=== PATIENT | male | born 1965 | race Caucasian/White ===

== ENCOUNTER 2018-03-27 01:56 | Inpatient (IN) ==
[2018-03-27] MEDS ORDERED: ONDANSETRON 4 MG/2 ML VIAL IV PRN (05:01)
[2018-03-27] MEDS ORDERED: INFLUENZA VIRUS VACCINE 0.5 ML SYRINGE IM ONE (06:40)
[2018-03-27 08:55] LABS: Basophils % 0.6 % (0.0-0.8); Eosinophils # 0.1 10*3/uL (0.0-0.87); Eosinophils % 0.7 % (0.00-10.9); Hematocrit 40.6 VOL% (42.0-52.0); Hemoglobin 12.9 GM/DL (14.0-18.0); Immature Granulocytes % 0.4 %; Immature Granulocytes Absolute 0.03 #; Lymphocytes # 1.3 10*3/uL (1.4-4.0); Lymphocytes % 18.6 % (21.2-54.2); Mean Corpuscular HGB Conc 31.8 GM/DL (32-36); Mean Corpuscular Hemoglobin 26 PG (27-34); Mean Corpuscular Volume 81.9 FL (87-102); Mean Platelet Volume 9.7 FL (9.6-12.0); Monocytes # 0.7 10*3/uL (0.11-0.8); Monocytes % 10.1 % (1.7-12.7); Neutrophils # 4.9 10*3/uL (1.4-7.4); Neutrophils % 69.6 % (38.7-73.9); Platelet Count 355 T/CUMM (130-400); Red Blood Count 4.96 MC/CUMM (3.8-5.5); Red Cell Distribution Width 15.6 % (9.3-17.3); White Blood Count 7.1 T/CUMM (4-12)
[2018-03-27 09:17] LABS: Albumin 2.9 G/DL (3.4-5.0); Bilirubin,Total 5.4 MG/DL (0.2-1.0); Calcium 8.6 MG/DL (8.5-10.1); Osmolality,Calculated 272.7 MOS/KG (273-304)
[2018-03-27] MEDS: PANTOPRAZOLE 40 MG VIAL IV SCH (09:43)
[2018-03-27] MEDS: DEXTROSE 5% LACTATED RINGERS 1,000 ML IV SCH ×3 (09:57→23:44)
[2018-03-27] MEDS ORDERED: SUCCINYLCHOLINE 200 MG/10 ML VIAL ONE (10:00)
[2018-03-27] MEDS ORDERED: LIDOCAINE 2% 5 ML VIAL ONE (10:00)
[2018-03-27] MEDS ORDERED: MIDAZOLAM 2 MG/2 ML VIAL ONE ×2 (10:00→12:01)
[2018-03-27] MEDS ORDERED: PROPOFOL 200 MG/20 ML VIAL IV ONE (10:00)
[2018-03-27] MEDS ORDERED: fentaNYL 100 MCG/2 ML VIAL ONE ×2 (10:00→12:01)
[2018-03-27] MEDS ORDERED: ONDANSETRON 4 MG/2 ML VIAL ONE (10:00)
[2018-03-27 10:43] LABS: PT Patient Result 10.9 SECS; Partial Thromboplastin Time 29.7 SECS (0-40)
[2018-03-27] MEDS ORDERED: LACTATED RINGERS 500 ML IV ONE (11:03)
[2018-03-27] MEDS ORDERED: INDOMETHACIN SUPP 50 MG SUPP RECTAL ONE (11:04)
[2018-03-27] MEDS ORDERED: SEVOFLURANE 1 UNIT/15 MINUTE INH ONE (13:15)
[2018-03-28 04:56] LABS: Basophils % 0.9 % (0.0-0.8); Eosinophils # 0.1 10*3/uL (0.0-0.87); Eosinophils % 2.9 % (0.00-10.9); Hematocrit 33.1 VOL% (42.0-52.0); Hemoglobin 10.5 GM/DL (14.0-18.0); Immature Granulocytes % 0.2 %; Immature Granulocytes Absolute 0.01 #; Lymphocytes # 1.4 10*3/uL (1.4-4.0); Lymphocytes % 31.2 % (21.2-54.2); Mean Corpuscular HGB Conc 31.7 GM/DL (32-36); Mean Corpuscular Hemoglobin 26 PG (27-34); Mean Corpuscular Volume 81.9 FL (87-102); Mean Platelet Volume 10.7 FL (9.6-12.0); Monocytes # 0.5 10*3/uL (0.11-0.8); Monocytes % 10.9 % (1.7-12.7); Neutrophils # 2.4 10*3/uL (1.4-7.4); Neutrophils % 53.9 % (38.7-73.9); Platelet Count 271 T/CUMM (130-400); Red Blood Count 4.04 MC/CUMM (3.8-5.5); Red Cell Distribution Width 15.8 % (9.3-17.3); White Blood Count 4.4 T/CUMM (4-12)
[2018-03-28 05:15] LABS: Albumin 2.3 G/DL (3.4-5.0); Bilirubin,Total 5.4 MG/DL (0.2-1.0); Osmolality,Calculated 281.1 MOS/KG (273-304); Total Protein 5.6 G/DL (6.4-8.3)
[2018-03-28] MEDS: DEXTROSE 5% LACTATED RINGERS 1,000 ML IV SCH ×3 (07:21→22:28)
[2018-03-28] MEDS: PANTOPRAZOLE 40 MG VIAL IV SCH (09:43)
[2018-03-29 05:39] LABS: Eosinophils # 0.1 10*3/uL (0.0-0.87); Eosinophils % 2.4 % (0.00-10.9); Hematocrit 33.1 VOL% (42.0-52.0); Hemoglobin 10.8 GM/DL (14.0-18.0); Immature Granulocytes % 0.2 %; Immature Granulocytes Absolute 0.01 #; Lymphocytes % 25.1 % (21.2-54.2); Mean Corpuscular HGB Conc 32.6 GM/DL (32-36); Mean Corpuscular Hemoglobin 26 PG (27-34); Mean Corpuscular Volume 80.5 FL (87-102); Mean Platelet Volume 10.7 FL (9.6-12.0); Monocytes # 0.4 10*3/uL (0.11-0.8); Monocytes % 8.8 % (1.7-12.7); Neutrophils # 2.6 10*3/uL (1.4-7.4); Neutrophils % 62.5 % (38.7-73.9); Platelet Count 281 T/CUMM (130-400); Red Blood Count 4.11 MC/CUMM (3.8-5.5); Red Cell Distribution Width 15.9 % (9.3-17.3); White Blood Count 4.1 T/CUMM (4-12)
[2018-03-29 06:06] LABS: Albumin 2.5 G/DL (3.4-5.0); Bilirubin,Total 6.9 MG/DL (0.2-1.0); Calcium 8.3 MG/DL (8.5-10.1); Osmolality,Calculated 275.4 MOS/KG (273-304); Potassium 3.6 MMOL/L (3.5-5.1)
[2018-03-29] MEDS ORDERED: MORPHINE 4 MG/1 ML VIAL IV ONE (07:43)
[2018-03-29] MEDS ORDERED: MORPHINE 4 MG/1 ML VIAL ONE (07:43)
[2018-03-29 07:59] LABS: Basophils # 0.1 10*3/uL (0.0-0.2); Eosinophils # 0.1 10*3/uL (0.0-0.87); Hematocrit 36.7 VOL% (42.0-52.0); Hemoglobin 11.8 GM/DL (14.0-18.0); Immature Granulocytes % 0.2 %; Immature Granulocytes Absolute 0.01 #; Lymphocytes # 1.6 10*3/uL (1.4-4.0); Lymphocytes % 31.5 % (21.2-54.2); Mean Corpuscular HGB Conc 32.2 GM/DL (32-36); Mean Corpuscular Hemoglobin 26 PG (27-34); Mean Corpuscular Volume 81.7 FL (87-102); Mean Platelet Volume 10.3 FL (9.6-12.0); Monocytes # 0.4 10*3/uL (0.11-0.8); Monocytes % 8.1 % (1.7-12.7); Neutrophils # 2.8 10*3/uL (1.4-7.4); Neutrophils % 57.2 % (38.7-73.9); Platelet Count 314 T/CUMM (130-400); Red Blood Count 4.49 MC/CUMM (3.8-5.5)
[2018-03-29 08:24] LABS: Alanine Aminotransferase 142 U/L (16-61); Albumin 2.7 G/DL (3.4-5.0); Alkaline Phosphatase 422 U/L (45-117); Aspartate Amino Transferase 92 U/L (0-37); Blood Urea Nitrogen 5 MG/DL (7-18); Calcium 8.7 MG/DL (8.5-10.1); Glucose 97 MG/DL (74-106); Osmolality,Calculated 277.3 MOS/KG (273-304); Potassium 4.6 MMOL/L (3.5-5.1); Sodium 141 MMOL/L (136-145); Total Protein 6.4 G/DL (6.4-8.3); Troponin I < 0.015 NG/ML (0.00-0.045)
[2018-03-29] MEDS ORDERED: LORazepam 2 MG/1 ML VIAL IV PRN (09:10)
[2018-03-29] MEDS ORDERED: THIAMINE INJ 100 MG, FOLIC ACID INJ 1 MG, MAGNESIUM SULF INJ 2 GM, MULTIVITAMIN INJ 10 ... IV ONE (09:12)
[2018-03-29] MEDS: PANTOPRAZOLE 40 MG VIAL IV SCH (09:40)
[2018-03-29] MEDS: QUEtiapine 25 MG TABLET PO SCH ×2 (09:53→22:24)
[2018-03-29] MEDS: DEXTROSE 5% LACTATED RINGERS 1,000 ML IV SCH ×2 (09:56→23:06)
[2018-03-29 10:15] LABS: Troponin I < 0.015 NG/ML (0.00-0.045)
[2018-03-29 17:50] LABS: Troponin I < 0.015 NG/ML (0.00-0.045)
[2018-03-29] MEDS: LORazepam 2 MG/1 ML VIAL IM PRN (22:23)
[2018-03-30] MEDS: DEXTROSE 5% LACTATED RINGERS 1,000 ML IV SCH ×2 (01:25→14:46)
[2018-03-30 05:58] LABS: Basophils % 1.2 % (0.0-0.8); Eosinophils # 0.2 10*3/uL (0.0-0.87); Eosinophils % 4.2 % (0.00-10.9); Hematocrit 34.4 VOL% (42.0-52.0); Hemoglobin 11.4 GM/DL (14.0-18.0); Immature Granulocytes % 0.2 %; Lymphocytes # 1.6 10*3/uL (1.4-4.0); Lymphocytes % 31.3 % (21.2-54.2); Mean Corpuscular HGB Conc 33.1 GM/DL (32-36); Mean Corpuscular Hemoglobin 27 PG (27-34); Mean Platelet Volume 10.8 FL (9.6-12.0); Monocytes # 0.5 10*3/uL (0.11-0.8); Monocytes % 10.5 % (1.7-12.7); Neutrophils # 2.7 10*3/uL (1.4-7.4); Neutrophils % 52.6 % (38.7-73.9); Platelet Count 300 T/CUMM (130-400); Red Cell Distribution Width 16.6 % (9.3-17.3)
[2018-03-30 05:59] LABS: Basophils # 0.1 10*3/uL (0.0-0.2); Immature Granulocytes Absolute 0.01 #
[2018-03-30 06:15] LABS: Calcium 8.4 MG/DL (8.5-10.1); Osmolality,Calculated 275.4 MOS/KG (273-304); Potassium 3.7 MMOL/L (3.5-5.1)
[2018-03-30 06:32] LABS: Folate 14.7 NG/ML (5.4-24.0)
[2018-03-30 07:33] LABS: Albumin 2.5 G/DL (3.4-5.0); Bilirubin,Direct 7.54 MG/DL (0.0-0.20); Bilirubin,Indirect 1.4 MG/DL (0.0-1.0); Bilirubin,Total 8.9 MG/DL (0.2-1.0)
[2018-03-30] MEDS ORDERED: NEOSTIGMINE 10 MG/10 ML VIAL ONE ×2 (10:00→13:39)
[2018-03-30] MEDS ORDERED: GLYCOPYRROLATE 0.4 MG/2 ML VIAL ONE (10:00)
[2018-03-30] MEDS ORDERED: PROPOFOL 200 MG/20 ML VIAL IV ONE (10:00)
[2018-03-30] MEDS ORDERED: ONDANSETRON 4 MG/2 ML VIAL ONE (10:00)
[2018-03-30] MEDS ORDERED: ROCURONIUM 100 MG/10 ML VIAL IV ONE (10:00)
[2018-03-30] MEDS ORDERED: SUCCINYLCHOLINE 200 MG/10 ML VIAL ONE (10:00)
[2018-03-30] MEDS ORDERED: LIDOCAINE 2% 5 ML VIAL ONE (10:00)
[2018-03-30 11:35] LABS: PT Patient Result 10.7 SECS
[2018-03-30] MEDS: MORPHINE 4 MG/1 ML VIAL IV PRN ×2 (11:44→18:25)
[2018-03-30] MEDS: PANTOPRAZOLE 40 MG VIAL IV SCH (11:49)
[2018-03-30] MEDS ORDERED: fentaNYL 100 MCG/2 ML VIAL ONE (12:03)
[2018-03-30] MEDS ORDERED: MIDAZOLAM 2 MG/2 ML VIAL ONE (12:04)
[2018-03-30] MEDS ORDERED: INDOMETHACIN SUPP 50 MG SUPP RECTAL ONE (12:05)
[2018-03-30] MEDS ORDERED: GLUCAGON 1 MG VIAL ONE (12:25)
[2018-03-30] MEDS ORDERED: SEVOFLURANE 1 UNIT/15 MINUTE INH ONE (13:39)
[2018-03-30] MEDS: QUEtiapine 25 MG TABLET PO SCH ×3 (15:28→22:27)
[2018-03-30] MEDS: NICOTINE 14 MG/24 HR PATCH TRANSDERM SCH (18:31)
[2018-03-31] MEDS: MORPHINE 4 MG/1 ML VIAL IV PRN ×4 (00:08→22:05)
[2018-03-31] MEDS: LORazepam 2 MG/1 ML VIAL IM PRN (00:14)
[2018-03-31] MEDS: DEXTROSE 5% LACTATED RINGERS 1,000 ML IV SCH ×3 (01:16→12:05)
[2018-03-31 07:09] LABS: Basophils # 0.1 10*3/uL (0.0-0.2); Basophils % 0.6 % (0.0-0.8); Eosinophils # 0.2 10*3/uL (0.0-0.87); Hematocrit 36.1 VOL% (42.0-52.0); Hemoglobin 11.9 GM/DL (14.0-18.0); Immature Granulocytes % 0.3 %; Immature Granulocytes Absolute 0.03 #; Lymphocytes # 1.6 10*3/uL (1.4-4.0); Lymphocytes % 17.5 % (21.2-54.2); Mean Corpuscular Hemoglobin 26 PG (27-34); Mean Corpuscular Volume 79.5 FL (87-102); Mean Platelet Volume 10.6 FL (9.6-12.0); Monocytes # 0.6 10*3/uL (0.11-0.8); Monocytes % 7.1 % (1.7-12.7); Neutrophils # 6.6 10*3/uL (1.4-7.4); Neutrophils % 72.5 % (38.7-73.9); Platelet Count 376 T/CUMM (130-400); Red Blood Count 4.54 MC/CUMM (3.8-5.5); Red Cell Distribution Width 16.4 % (9.3-17.3); White Blood Count 9.1 T/CUMM (4-12)
[2018-03-31 08:38] LABS: Bilirubin,Total 3.7 MG/DL (0.2-1.0); Calcium 8.6 MG/DL (8.5-10.1); Osmolality,Calculated 278.3 MOS/KG (273-304); Potassium 4.3 MMOL/L (3.5-5.1); Total Protein 6.5 G/DL (6.4-8.3)
[2018-03-31] MEDS ORDERED: TISSUE ADHESIVE 1 EACH APPLICATOR TOP ONE (09:05)
[2018-03-31] MEDS ORDERED: LIDOCAINE 1%/EPI INJ 20 ML VIAL ONE (09:06)
[2018-03-31] MEDS: PANTOPRAZOLE 40 MG VIAL IV SCH (09:37)
[2018-03-31] MEDS: QUEtiapine 25 MG TABLET PO SCH ×2 (09:37→20:45)
[2018-03-31] MEDS: NICOTINE 14 MG/24 HR PATCH TRANSDERM SCH (09:37)
[2018-03-31] MEDS: cefOXitin 2,000 MG in SYRINGE 1 EACH IV ONE ×2 (09:40→11:36)
[2018-03-31] MEDS ORDERED: SUGAMMADEX 200 MG/2 ML VIAL IV ONE (11:09)
[2018-03-31] MEDS ORDERED: ONDANSETRON 4 MG/2 ML VIAL IV PRN (11:34)
[2018-03-31] MEDS ORDERED: PROMETHAZINE INJ 25 MG in SODIUM CHLORIDE 0.9% 50 ML IV PRN (11:34)
[2018-03-31] MEDS ORDERED: MEPERIDINE 25 MG/1 ML VIAL IV PRN (11:34)
[2018-03-31] MEDS: HYDROmorphone 2 MG/1 ML VIAL IV PRN ×4 (11:40→11:55)
[2018-03-31] MEDS ORDERED: LORazepam 2 MG/1 ML VIAL ONE (11:41)
[2018-03-31] MEDS ORDERED: HYDROmorphone 2 MG/1 ML VIAL ONE (11:41)
[2018-03-31] MEDS ORDERED: PROMETHAZINE 25 MG/1 ML VIAL ONE (11:41)
[2018-03-31] MEDS ORDERED: MEPERIDINE 25 MG/1 ML VIAL ONE (11:41)
[2018-03-31] MEDS ORDERED: ONDANSETRON 4 MG/2 ML VIAL ONE ×2 (11:41→12:10)
[2018-03-31] MEDS ORDERED: MIDAZOLAM 2 MG/2 ML VIAL ONE (12:10)
[2018-03-31] MEDS ORDERED: PROPOFOL 200 MG/20 ML VIAL IV ONE (12:10)
[2018-03-31] MEDS ORDERED: SEVOFLURANE 1 UNIT/15 MINUTE INH ONE (12:10)
[2018-03-31] MEDS ORDERED: fentaNYL 100 MCG/2 ML VIAL ONE (12:10)
[2018-03-31] MEDS ORDERED: LACTATED RINGERS 1,000 ML IV ONE (12:11)
[2018-03-31] MEDS ORDERED: ROCURONIUM 100 MG/10 ML VIAL IV ONE (12:11)
[2018-03-31] MEDS ORDERED: ACETAMINOPHEN 1,000 MG/100 ML VIAL IV ONE (12:11)
[2018-03-31 13:06] LABS: Basophils % 0.4 % (0.0-0.8); Eosinophils # 0.1 10*3/uL (0.0-0.87); Hematocrit 34.7 VOL% (42.0-52.0); Hemoglobin 11.4 GM/DL (14.0-18.0); Immature Granulocytes % 0.6 %; Immature Granulocytes Absolute 0.05 #; Lymphocytes # 1.5 10*3/uL (1.4-4.0); Lymphocytes % 16.2 % (21.2-54.2); Mean Corpuscular HGB Conc 32.9 GM/DL (32-36); Mean Corpuscular Hemoglobin 27 PG (27-34); Mean Corpuscular Volume 81.3 FL (87-102); Mean Platelet Volume 9.9 FL (9.6-12.0); Monocytes # 0.5 10*3/uL (0.11-0.8); Monocytes % 5.7 % (1.7-12.7); Neutrophils # 6.8 10*3/uL (1.4-7.4); Neutrophils % 76.1 % (38.7-73.9); Platelet Count 320 T/CUMM (130-400); Red Blood Count 4.27 MC/CUMM (3.8-5.5); Red Cell Distribution Width 16.6 % (9.3-17.3); White Blood Count 8.9 T/CUMM (4-12)
[2018-03-31 13:47] LABS: Albumin 2.7 G/DL (3.4-5.0); Bilirubin,Direct 2.2 MG/DL (0.0-0.20); Bilirubin,Indirect 0.8 MG/DL (0.0-1.0); Calcium 8.2 MG/DL (8.5-10.1); Osmolality,Calculated 278.3 MOS/KG (273-304); Potassium 4.3 MMOL/L (3.5-5.1); Total Protein 6.3 G/DL (6.4-8.3)
[2018-03-31] MEDS: GABAPENTIN 300 MG CAPSULE PO SCH ×2 (14:23→20:44)
[2018-03-31] MEDS: ENOXAPARIN 40 MG/0.4 ML SYRINGE SUBCUT SCH (14:23)
[2018-03-31] MEDS: KETOROLAC 30 MG/1 ML VIAL IV SCH ×2 (14:24→18:43)
[2018-04-01] MEDS: MORPHINE 4 MG/1 ML VIAL IV PRN ×2 (02:03→08:30)
[2018-04-01] MEDS: KETOROLAC 30 MG/1 ML VIAL IV SCH ×4 (02:16→19:00)
[2018-04-01] MEDS: DEXTROSE 5% LACTATED RINGERS 1,000 ML IV SCH ×3 (02:19→10:37)
[2018-04-01 06:07] LABS: Basophils % 0.3 % (0.0-0.8); Eosinophils # 0.2 10*3/uL (0.0-0.87); Eosinophils % 1.3 % (0.00-10.9); Hematocrit 31.4 VOL% (42.0-52.0); Hemoglobin 9.9 GM/DL (14.0-18.0); Immature Granulocytes % 0.3 %; Immature Granulocytes Absolute 0.04 #; Lymphocytes # 1.6 10*3/uL (1.4-4.0); Lymphocytes % 13.4 % (21.2-54.2); Mean Corpuscular HGB Conc 31.5 GM/DL (32-36); Mean Corpuscular Hemoglobin 26 PG (27-34); Mean Corpuscular Volume 82.8 FL (87-102); Mean Platelet Volume 11.2 FL (9.6-12.0); Monocytes # 0.7 10*3/uL (0.11-0.8); Monocytes % 5.6 % (1.7-12.7); Neutrophils # 9.5 10*3/uL (1.4-7.4); Neutrophils % 79.1 % (38.7-73.9); Platelet Count 314 T/CUMM (130-400); Red Blood Count 3.79 MC/CUMM (3.8-5.5); Red Cell Distribution Width 16.7 % (9.3-17.3)
[2018-04-01 06:15] LABS: Calcium 7.8 MG/DL (8.5-10.1); Osmolality,Calculated 279.4 MOS/KG (273-304); Potassium 3.8 MMOL/L (3.5-5.1)
[2018-04-01 06:18] LABS: Albumin 2.3 G/DL (3.4-5.0); Bilirubin,Direct 1.35 MG/DL (0.0-0.20); Bilirubin,Indirect 0.8 MG/DL (0.0-1.0); Bilirubin,Total 2.1 MG/DL (0.2-1.0); Total Protein 5.5 G/DL (6.4-8.3)
[2018-04-01] MEDS: NICOTINE 14 MG/24 HR PATCH TRANSDERM SCH (09:25)
[2018-04-01] MEDS: GABAPENTIN 300 MG CAPSULE PO SCH ×3 (09:25→21:13)
[2018-04-01] MEDS: PANTOPRAZOLE 40 MG VIAL IV SCH (09:25)
[2018-04-01] MEDS: QUEtiapine 25 MG TABLET PO SCH ×2 (09:26→21:13)
[2018-04-01] MEDS: LORazepam 2 MG/1 ML VIAL IM PRN (10:35)
[2018-04-01] MEDS: ACETAMINOPHEN 325 MG TABLET PO PRN (10:35)
[2018-04-01] MEDS: ENOXAPARIN 40 MG/0.4 ML SYRINGE SUBCUT SCH (14:29)
[2018-04-02] MEDS: KETOROLAC 30 MG/1 ML VIAL IV SCH ×4 (00:58→20:34)
[2018-04-02 06:15] LABS: Basophils # 0.1 10*3/uL (0.0-0.2); Basophils % 0.4 % (0.0-0.8); Eosinophils # 0.5 10*3/uL (0.0-0.87); Eosinophils % 3.9 % (0.00-10.9); Hematocrit 30.8 VOL% (42.0-52.0); Hemoglobin 9.7 GM/DL (14.0-18.0); Immature Granulocytes % 0.5 %; Immature Granulocytes Absolute 0.07 #; Lymphocytes # 1.9 10*3/uL (1.4-4.0); Lymphocytes % 14.6 % (21.2-54.2); Mean Corpuscular HGB Conc 31.5 GM/DL (32-36); Mean Corpuscular Hemoglobin 27 PG (27-34); Mean Corpuscular Volume 84.2 FL (87-102); Monocytes % 7.6 % (1.7-12.7); Neutrophils # 9.5 10*3/uL (1.4-7.4); Platelet Count 265 T/CUMM (130-400); Red Blood Count 3.66 MC/CUMM (3.8-5.5); Red Cell Distribution Width 16.9 % (9.3-17.3)
[2018-04-02 06:27] LABS: Albumin 2.1 G/DL (3.4-5.0); Bilirubin,Total 1.7 MG/DL (0.2-1.0); Calcium 8.3 MG/DL (8.5-10.1); Osmolality,Calculated 276.5 MOS/KG (273-304); Potassium 3.8 MMOL/L (3.5-5.1); Total Protein 5.8 G/DL (6.4-8.3)
[2018-04-02] MEDS: QUEtiapine 25 MG TABLET PO SCH ×2 (09:31→20:34)
[2018-04-02] MEDS: NICOTINE 14 MG/24 HR PATCH TRANSDERM SCH (09:31)
[2018-04-02] MEDS: PANTOPRAZOLE 40 MG VIAL IV SCH (09:31)
[2018-04-02] MEDS: GABAPENTIN 300 MG CAPSULE PO SCH ×3 (09:31→20:34)
[2018-04-02] MEDS: ENOXAPARIN 40 MG/0.4 ML SYRINGE SUBCUT SCH (12:57)
[2018-04-03] MEDS: KETOROLAC 30 MG/1 ML VIAL IV SCH ×2 (01:18→06:05)
[2018-04-03 05:09] LABS: Basophils # 0.1 10*3/uL (0.0-0.2); Basophils % 0.4 % (0.0-0.8); Eosinophils # 0.5 10*3/uL (0.0-0.87); Eosinophils % 4.2 % (0.00-10.9); Hematocrit 33.9 VOL% (42.0-52.0); Hemoglobin 10.6 GM/DL (14.0-18.0); Immature Granulocytes % 0.5 %; Immature Granulocytes Absolute 0.06 #; Lymphocytes % 17.4 % (21.2-54.2); Mean Corpuscular HGB Conc 31.3 GM/DL (32-36); Mean Corpuscular Hemoglobin 26 PG (27-34); Mean Corpuscular Volume 84.1 FL (87-102); Mean Platelet Volume 11.5 FL (9.6-12.0); Monocytes # 0.9 10*3/uL (0.11-0.8); Monocytes % 8.1 % (1.7-12.7); Neutrophils # 7.8 10*3/uL (1.4-7.4); Neutrophils % 69.4 % (38.7-73.9); Platelet Count 338 T/CUMM (130-400); Red Blood Count 4.03 MC/CUMM (3.8-5.5); Red Cell Distribution Width 16.7 % (9.3-17.3); White Blood Count 11.3 T/CUMM (4-12)
[2018-04-03 05:21] LABS: Calcium 8.7 MG/DL (8.5-10.1); Osmolality,Calculated 280.3 MOS/KG (273-304); Potassium 3.7 MMOL/L (3.5-5.1)
[2018-04-03] MEDS: PANTOPRAZOLE 40 MG VIAL IV SCH (10:03)
[2018-04-03] MEDS: NICOTINE 14 MG/24 HR PATCH TRANSDERM SCH (10:10)
[2018-04-03] MEDS: GABAPENTIN 300 MG CAPSULE PO SCH (10:10)
[2018-04-03] MEDS: QUEtiapine 25 MG TABLET PO SCH (10:10)
[2018-04-03 11:26] VITALS: BP 124/75
[2018-04-03] MEDS: ACETAMINOPHEN 325 MG TABLET PO PRN (12:04)
== END 2018-04-03 13:00 | disposition home or self-care (01) | DRG 418 ==
LOC: EDUNIT# → EDBD → N.ED 01:56 → N.EDINP 05:01 → N.3E 05:45
PROVIDERS: ADMIT Surgery; ATTEND Surgery
PROC: ERCPWSP (ICD-10-PCS; 2018-03-27 12:50)
PROC: ERCPWST (ICD-10-PCS; 2018-03-30 13:05)
PROC: LAPCHOL (2018-03-31 09:40)